=== PATIENT | female | born 1975 | race Caucasian/White ===

== ENCOUNTER 2025-07-11 14:57 | Emergency (ER) | payer MEDICAID ==
[~2025-07-11] VITALS: Ht 167.6 cm; Wt 75.0 kg
[~2025-07-11 14:57] MED LIST: CLON-529 PO
[2025-07-11 15:07] VITALS: TEMP 97.6
--- NOTE | 2025-07-11 16:48 | Physician Documentation ---
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 Denies any chest pain shortness of breath or dizziness. Denies any vertigo states she is taking Tylenol without much relief. Denies nausea ,denies light sensitivity, denies neck pain Day of Onset: Jul 11, 2025 Medication Reconciliation Allergies: Coded Allergies: No Known Allergies (Unverified , 07/11/25) Scheduled Clonidine Hcl* (Catapres*), 0.1 MG PO BID Past Medical History Past Medical History: No Pertinent History Past Surgical History: cholecystectomy Alcohol Use: None Drug Use: none Review of Systems All Other Systems at this time: Reviewed and Negative ROS As stated above in the HPI, otherwise all systems are reviewed and negative. Physical Exam Vital Signs: Temperature: 97.6, Source: Temporal, Heart Rate: 69, Respiratory Rate: 18, BP: 166/100, Pulse Oximetry: 100, Weight: 75.000 Physical Exam General: Alert, no apparent distress. HEENT: PERRL, EOMI, no injection, moist mucous membranes. Neck: Full range of motion. Respiratory: Lungs clear, no respiratory distress. Chest: No accessory muscle use. Cardiovascular: Regular rate and rhythm, no murmurs. Gastrointestinal: Soft, nontender, nondistended. Bowels sounds present. Extremities: Normal range of motion, no deformity. Neurologic: Oriented x4. Psychiatric: Normal mood and affect. Skin: Normal color, warm and dry. No edema, no ecchymosis. Progress Results/Orders Results/Orders Completed Orders - RENALDO ADAMS NP Ketorolac Trometh 15mg/Ml Vial (Toradol (07/11/25 16:35) Haloperidol Lact. (Haldol) (07/11/25 16:35) Normal Saline 1000ml (0.9% Sodium Chlori (07/11/25 16:35) Medications Received in ER Medications (Trade) Dose Ordered Sig/Jeb Route PRN Reason Start Time Stop Time Status Last Admin Dose Admin (Toradol injection) 30 mg ONCE ONCE IV 07/11/25 16:35 07/11/25 16:37 DC 07/11/25 17:03 30 MG (Haldol) 5 mg ONCE ONCE IM 07/11/25 16:35 07/11/25 16:37 DC 07/11/25 16:59 5 MG (0.9% sodium chloride (NS) 1000ml IV soln) 1,000 ml ONCE ONCE IVB 07/11/25 16:35 07/11/25 16:37 DC 07/11/25 17:02 1,000 ML Vital Signs 07/11/25 07/11/25 15:07 17:03 Temp 97.6 Pulse 69 Resp 18 18 B/P (MAP) 166/100 Pulse Ox 100 Medical Decision Making Findings After receiving oral fluids Haldol and Toradol I went and re-evaluated the patient. She was sleeping undisturbed and reported overall improved symptoms.. At this time I do not see any reason to pursue further imaging. She meets criteria for outpatient evaluation. Recommending that she obtains a referral to neurologist if she has persistent migraines Differential Dx:Considerations: Include: TRIMBLE-Cluster, TRIMBLE-Migraine, TRIMBLE- Hypertensive, TRIMBLE-Muscular contraction, TRIMBLE-Post lumbar puncture, Carbon monoxide toxicity, Close head injuyr, CVA, Fever induced, Hemorrhage-Epidural, Hemorrhage-Intracerebral, Hemorrhage-Subarachnoid, Hemorrhage-Subdural, Mass lesion, Meningitis, Post-traumtic, Pseudotumor cerebri, Sinusitis, Temporal arteritis, Trigeminal neuralgia, Other Departure Disposition: 01 HOME / SELF CARE / HOMELESS Impression: Primary Impression: Migraine Discharge Instructions: Chronic Migraine Headache, [id number], Migraine H eadache Referrals: NO PRIMARY CARE PROVIDER (PCP) Education Educated: Patient Educated regarding: diagnosis Signature Scribe Signature: g Attestation: Scribed for Renaldo Adams Insulation Worker Apprentice by Renaldo Adams - SEAN . 07/11/25 17:46 RENALDO ADAMS NP Jul 11, 2025 16:48
[2025-07-11] MEDS: haloperidol lactate 5mg/ml inj IM ONE (16:59)
[2025-07-11] MEDS: normal saline 1000ML IV soln IVB ONE (17:02)
[2025-07-11] MEDS: ketorolac trometh 15mg/ml vial 15 MG/ML ML IV ONE (17:03)
[2025-07-11 17:47] VITALS: BP 134/78; PULSE 72; RESP 14; O2SAT 99
== END 2025-07-11 17:49 | disposition home or self-care (01) ==
LOC: ER 14:57
DX: G43.909 Migraine, unspecified, not intractable, without status migrainosus (principal); Z90.49 Acquired absence of other specified parts of digestive tract
CPT/HCPCS: 96361; 96372; 96374; 99284; J1630; J1885; J7030